=== PATIENT | female | born 1945 | race Caucasian/White ===

== ENCOUNTER → 2017-09-16 | Outpatient (CLI) | payer MEDICARE ==
[~2017-09-16] MED LIST: CALC1CAP8 PO; ESTR0.6246 PO; LORA10TA75 PO; RANI150T4 PO; magnesium PO; simply sleep PO
== END | disposition home or self-care (01) ==
LOC: STAR 15:42
PROVIDERS: ATTEND Surgery
DX: Z01.818 Encounter for other preprocedural examination (principal); R59.1 Generalized enlarged lymph nodes; C82.90 Follicular lymphoma, unspecified, unspecified site
CPT/HCPCS: 93005

== ENCOUNTER 2017-09-20 06:07 | Day surgery (SDC) | payer MEDICARE ==
[2017-09-16 16:06] VITALS: BP 134/82
[~2017-09-20] VITALS: Ht 151.1 cm; Wt 57.6 kg
[~2017-09-20 06:07] MED LIST changes: +LACTATED RINGERS 1,000 ML IV SCH; +LIDOCAINE 1%, 2ML ONE
[2017-09-20] MEDS ORDERED: BUPIVACAINE/PF 0.5% ONE (06:22)
[2017-09-20] MEDS ORDERED: EPINEPHRINE 1 MG/ML, 1ML ONE (06:22)
[2017-09-20] MEDS ORDERED: HYDROmorphone 1 MG/ML, 1ML IV PRN (06:30)
[2017-09-20] MEDS ORDERED: LIDOCAINE 1%, 2ML SQ PRN (06:30)
[2017-09-20] MEDS ORDERED: PROMETHAZINE 25 MG/ML, 1ML IV PRN (06:30)
[2017-09-20] MEDS ORDERED: LABETALOL 5MG/ML, 20ML IV PRN (06:30)
[2017-09-20] MEDS ORDERED: ACETAMINOPHEN 325 MG TABLET PO PRN (06:30)
[2017-09-20] MEDS ORDERED: MIDAZOLAM 1 MG/ML, 2ML IV PRN (06:30)
[2017-09-20] MEDS ORDERED: OXYcodone 5 MG/5 ML ORAL.SOL UDC PO PRN (06:30)
[2017-09-20] MEDS ORDERED: MEPERIDINE/PF 25MG/0.5ML IVPush PRN (06:30)
[2017-09-20] MEDS ORDERED: ONDANSETRON 2MG/ML, 2ML IVPush PRN (06:30)
[2017-09-20] MEDS ORDERED: DIAZEPAM 5 MG/ML, 2ML IVPush PRN (06:30)
[2017-09-20] MEDS ORDERED: FENTANYL PF 100 MCG/2ML IV PRN (06:30)
[2017-09-20] MEDS ORDERED: ALBUTEROL/IPRATROPIUM 2.5MG/0.5MG, 3 ML NPPB PRN (06:30)
[2017-09-20] MEDS ORDERED: KETOROLAC 30 MG/1 ML IV PRN (06:30)
[2017-09-20] MEDS ORDERED: hydrALAzine 20 MG/ML, 1ML IV PRN (06:30)
[2017-09-20] MEDS ORDERED: FENTANYL PF 100 MCG/2ML ONE (06:34)
[2017-09-20] MEDS ORDERED: PROPOFOL 10 MG/ML, 20ML ONE (06:34)
[2017-09-20] MEDS ORDERED: CEFAZOLIN 1,000 MG ONE (06:56)
[2017-09-20] MEDS ORDERED: LIDOCAINE-MPF 2% ,5ML ONE (07:09)
[2017-09-20] MEDS ORDERED: LABETALOL 5MG/ML, 20ML ONE (08:04)
== END 2017-09-20 08:56 ==
LOC: OUT 06:07
PROVIDERS: ATTEND Surgery
DX: C85.90 Non-Hodgkin lymphoma, unspecified, unspecified site (principal); K21.9 Gastro-esophageal reflux disease without esophagitis; Z90.710 Acquired absence of both cervix and uterus; Z88.5 Allergy status to narcotic agent
CPT/HCPCS: 38500; 88305; J0171; J0690; J2704; J3010; J3490; J7120; 88341; 88342; 88360; G0461